=== PATIENT | male | born 1960 | race Asian ===

== ENCOUNTER 2017-06-10 16:10 | Emergency (ER) | payer BC ==
[~2017-06-10] VITALS: Ht 170.2 cm; Wt 70.0 kg
[2017-06-10 16:18] VITALS: BP 115/83
[2017-06-10] MEDS ORDERED: HYDROcodone/APAP 5/325 TABLET PO ONE (16:30)
[2017-06-10] MEDS ORDERED: PLEASE ENTER ALLERGIES MC SCH (16:30)
== END 2017-06-10 18:05 | disposition home or self-care (01) ==
LOC: ED 17:32
DX: S69.92XA Unspecified injury of left wrist, hand and finger(s), initial encounter (principal); G89.11 Acute pain due to trauma; E11.9 Type 2 diabetes mellitus without complications; W19.XXXA Unspecified fall, initial encounter; Y93.89 Activity, other specified; Y92.89 Other specified places as the place of occurrence of the external cause; Y99.8 Other external cause status
CPT/HCPCS: 72110; 99284